=== PATIENT | male | born 1985 | race African-American/Black ===

== ENCOUNTER 2018-08-28 17:29 | Emergency (ER) | payer OTHER ==
[~2018-08-28] VITALS: Ht 180.3 cm; Wt 63.6 kg
[2018-08-28 20:28] VITALS: BP 116/68
== END 2018-08-28 20:33 | disposition home or self-care (01) ==
LOC: EDUNIT# 17:29 → EMS 17:37
DX: S99.922A Unspecified injury of left foot, initial encounter (principal); W22.8XXA Striking against or struck by other objects, initial encounter; Y93.H2 Activity, gardening and landscaping; Y92.096 Garden or yard of other non-institutional residence as the place of occurrence of the external cause; Y99.8 Other external cause status
CPT/HCPCS: 99284